=== PATIENT | male | born 1965 | race Caucasian/White ===

== ENCOUNTER 2018-05-03 19:35 | Emergency (ER) ==
[2018-05-03 19:47] VITALS: BP 157/94; TEMP 97.1; BMI 41.4
--- NOTE | 2018-05-03 19:53 | ED.PDOC ---
General ED Provider: Dr. TROY COHEN-ER Chief Complaint: Respiratory Complaint Stated Complaint: my nose is draining and im coughing up yellow stuff Time Seen by Physician: 19:51 Mode of Arrival: Walk-In Information Source: Patient Exam Limitations: No limitations Nursing and Triage Documentation Reviewed and Agree: Yes Does patient meet sepsis criteria?: No System Inflammatory Response Syndrome: Not Applicable Sepsis Protocol: For patient's 13 years and over: Temp is 96.8 and below OR 101 and greater Pulse >90 BPM Resp >20/minute Acutely Altered Mental Status Are patient's symptoms suggestive of a new infection, such as: -Pneumonia -Skin, Soft Tissue -Endocarditis -UTI -Bone, Joint Infection -Implantable Device -Acute Abdominal Infection -Wound Infection -Meningitis -Blood Stream Catheter Infection -Unknown Respiratory Complaint Exam - Respiratory Complaint/Exam Onset/Duration: several days Symptoms Are: Still present Timing: Intermittent Initial Severity: Mild Current Severity: Mild Location: Nose, Chest Character: Reports: Productive cough Aggravating: Reports: URI, Passive smoke exposure Associated Signs and Symptoms: Reports: Wheezing, URI, Nasal congestion, Sore throat. Denies: Rapid breathing, Dyspnea, Fever, Chills, Chest pain, Pleuritic chest pain, Hemoptysis, Dizziness, Calf pain, Calf swelling, Edema, Hoarseness Home Oxygen Use: No Recent Stress Test: No Recent Echo/LV Function: No Current Antibiotic Use: No Current Asthma Medication Use: No Respiratory Distress: None Inadequate Respiratory Effort: No Dysphagia Present: No JVD Present: No Accessory Muscle Use: No Diminished Breath Sounds: No Sinus Tenderness: Maxillary Grunting Respirations: No Kussmaul Respirations: No Differential Diagnoses: Bronchitis Review of Systems - Review Of Systems Constitutional: Reports: No symptoms Eyes: Reports: No symptoms Ears, Nose, Mouth, Throat: Reports: No symptoms Respiratory: Reports: Cough, Wheezing Cardiac: Reports: No symptoms GI: Reports: No symptoms : Reports: No symptoms Musculoskeletal: Reports: No symptoms Skin: Reports: No symptoms Neurological: Reports: No symptoms Endocrine: Reports: No symptoms Hematologic/Lymphatic: Reports: No symptoms All Other Systems: Reviewed and Negative Past Medical History - Past Medical History Previously Healthy: Yes Endocrine: Reports: None Cardiovascular: Reports: None Respiratory: Reports: COPD Hematological: Reports: None Gastrointestinal: Reports: None Genitourinary: Reports: None Neuro/Psych: Reports: None Musculoskeletal: Reports: None Cancer: Reports: None - Surgical History General Surgical History: Reports: Unknown - Family History Family History: Reports: Unknown - Social History Smoking Status: Current every day smoker Hx Substance Use: No Alcohol Screening: None - Immunizations Tetanus Shot up to Date: Yes Physical Exam - Physical Exam Appearance: Well-appearing, No pain distress, Well-nourished Eyes: LIZZY ENT: Rhinorrhea Neck: Supple Respiratory: Rhonchi, Wheezes Cardiovascular: RRR GI/: Soft Musculoskeletal: Normal strength, ROM intact, No edema, No calf tenderness Skin: Warm Neurological: Sensation intact, Motor intact, Reflexes intact, Cranial nerves intact, Alert, Oriented Psychiatric: Affect appropriate, Mood appropriate Critical Care Note - Critical Care Note Total Time (mins): 0 Course - Course Vital Signs: Temp Pulse Resp BP Pulse Ox 05/03/18 19:54 95 05/03/18 19:37 97.1 F L 66 20 157/94 H 93 L Departure - Departure Time of Disposition: 19:53 Disposition: HOME SELF-CARE Discharge Problem: COPD exacerbation Instructions: COPD (Chronic Obstructive Pulmonary Disease) (ED) Condition: Good Pt referred to PMD for follow-up: Yes IPMP verified?: No Additional Instructions: biaxin 500mg bid x 10 days---medrol dose pack---mucinex 600mg bid #30--- tessalon perles 200mg tid prn cough 30---albuterol inhaler 2 puffs qid ---stop smoking--you will need cxr if not better in a few days Allergies/Adverse Reactions: Allergies cephalexin [From Keflex] Adverse Reaction (Verified 05/03/18 19:43) Home Medications: Ambulatory Orders Losartan Potassium [Cozaar] 25 mg PO DAILY 05/03/18 Metoprolol Tartrate [Lopressor] 50 mg PO DAILY 05/03/18 Disposition Discussed With: Patient
== END 2018-05-03 20:03 | disposition home or self-care (01) ==
LOC: ED 19:35
DX: J44.1 Chronic obstructive pulmonary disease with (acute) exacerbation (principal); F17.210 Nicotine dependence, cigarettes, uncomplicated
CPT/HCPCS: 99283

== ENCOUNTER 2018-06-08 09:53 | Emergency (ER) ==
[2018-06-08 09:56] VITALS: BP 153/100; TEMP 96.2; BMI 40.7
--- NOTE | 2018-06-08 10:20 | ED.PDOC ---
General ED Provider: Dr. TROY MARSHALL Chief Complaint: Neck Pain Non-Injury Stated Complaint: Shoulder and neck pain. Onset 2 days ago. Coughs frequently LT chest and shoulder more uncomfortable than Rt> Lt ear aching. Also cough and congestion, aching. No fever or chills. Time Seen by Physician: 10:15 Mode of Arrival: Walk-In Information Source: Patient Exam Limitations: No limitations Primary Care Provider: RODOLFO HILLIARD Nursing and Triage Documentation Reviewed and Agree: Yes Does patient meet sepsis criteria?: No System Inflammatory Response Syndrome: Not Applicable Sepsis Protocol: For patient's 13 years and over: Temp is 96.8 and below OR 101 and greater Pulse >90 BPM Resp >20/minute Acutely Altered Mental Status Are patient's symptoms suggestive of a new infection, such as: -Pneumonia -Skin, Soft Tissue -Endocarditis -UTI -Bone, Joint Infection -Implantable Device -Acute Abdominal Infection -Wound Infection -Meningitis -Blood Stream Catheter Infection -Unknown Musculoskeletal Complaint Exam - Shoulder Pain Complaint/Exam Mechanism of Injury: Reports: No known trauma Onset/Duration: 2 days Symptoms Are: Still present Timing: Intermittent Initial Severity: Moderate Current Severity: Mild Location: Reports: Discrete Character: Reports: Sharp, Aching, Spasmodic, Stiffness, Burning Alleviating: Reports: Rest Aggravating: Reports: Movement, Flexion, Extension Associated Signs and Symptoms: Denies: Swelling, Redness, Bruising, Fever, Weakness, Numbness, Tingling Related History: Denies: Similar episode Non-Orthopedic Risk Factors: Reports: None DVT Risk Factors: Reports: None Septic Arthritis Risk Factors: Reports: None Related Surgical History: Reports: None Shoulder Findings: Present: Swelling (Tenderness LT 1st Costovertebral joint region ) Limited Range of Motion: Present: Flexion, Extension, External rotation Differential Diagnoses: Strain Quality Indicator For Non-Traumatic Chest Pain/Syncope: EKG Performed Review of Systems - Review Of Systems Constitutional: Reports: No symptoms Eyes: Reports: No symptoms Ears, Nose, Mouth, Throat: Reports: Ear pain Respiratory: Reports: Cough, Wheezing Cardiac: Reports: No symptoms GI: Reports: No symptoms : Reports: No symptoms Musculoskeletal: Reports: Back pain Skin: Reports: No symptoms Neurological: Reports: No symptoms Endocrine: Reports: No symptoms Hematologic/Lymphatic: Reports: No symptoms All Other Systems: Reviewed and Negative Past Medical History - Past Medical History Previously Healthy: Yes Endocrine: Reports: None Cardiovascular: Reports: None Respiratory: Reports: COPD Hematological: Reports: None Gastrointestinal: Reports: None Genitourinary: Reports: None Neuro/Psych: Reports: None Musculoskeletal: Reports: None Cancer: Reports: None - Surgical History General Surgical History: Reports: Unknown - Family History Family History: Reports: Unknown - Social History Smoking Status: Current every day smoker Hx Substance Use: No Alcohol Screening: None Physical Exam - Physical Exam Appearance: Well-appearing, No pain distress, Well-nourished Ill-appearing: Mild Pain Distress: Mild Eyes: LIZZY, EOMI, Conjunctiva clear ENT: Ears normal, Nose normal, Oropharynx normal Respiratory: Airway patent, Breath sounds clear, Breath sounds equal, Respirations nonlabored Cardiovascular: RRR, Pulses normal, No rub, No murmur GI/: Soft, Nontender, No masses, Bowel sounds normal, No Organomegaly Musculoskeletal: Normal strength, ROM intact, No edema, No calf tenderness Skin: Warm, Dry, Normal color Neurological: Sensation intact, Motor intact, Reflexes intact, Cranial nerves intact, Alert, Oriented Psychiatric: Affect appropriate, Mood appropriate Critical Care Note - Critical Care Note Total Time (mins): 0 Course - Course Hematology/Chemistry: 06/08/18 10:40 06/08/18 10:40 Orders, Labs, Meds: Lab Review 06/08/18 06/08/18 06/08/18 10:40 10:40 10:50 WBC 8.20 RBC 4.70 Hgb 13.7 L Hct 39.5 L MCV 84.0 MCH 29.1 MCHC 34.7 RDW Coeff of Herbert 12.7 Plt Count 213 Immature Gran % (Auto) 0.6 Neut % (Auto) 65.3 Lymph % (Auto) 25.5 Mobile % (Auto) 5.1 Eos % (Auto) 3.3 Baso % (Auto) 0.2 Immature Gran # (Auto) 0.1 Neut # (Auto) 5.4 Lymph # (Auto) 2.1 Mobile # (Auto) 0.4 Eos # (Auto) 0.3 Baso # (Auto) 0.0 ESR 18 H Puncture Site O2 Saturation ABG pH ABG pCO2 ABG pO2 ABG HCO3 ABG Total CO2 ABG Base Excess Williams Test FiO2 % Sodium 140.0 Potassium 4.78 Chloride 103.1 Carbon Dioxide 29.0 Anion Gap 12.68 BUN 17.7 Creatinine 0.79 Estimated GFR (MDRD) 102.00 BUN/Creatinine Ratio 22.40 Glucose 169.5 H Calcium 9.52 Total Bilirubin 0.27 AST 42.9 ALT 54.6 H Alkaline Phosphatase 64.0 Total Protein 7.60 Albumin 4.31 Globulin 3.29 Albumin/Globulin Ratio 1.31 Influ A Molecular Assay Negative by naat Influ B Molecular Assay Negative by naat RSV Antigen 06/08/18 06/08/18 10:50 11:05 WBC RBC Hgb Hct MCV MCH MCHC RDW Coeff of Herbert Plt Count Immature Gran % (Auto) Neut % (Auto) Lymph % (Auto) Mobile % (Auto) Eos % (Auto) Baso % (Auto) Immature Gran # (Auto) Neut # (Auto) Lymph # (Auto) Mobile # (Auto) Eos # (Auto) Baso # (Auto) ESR Puncture Site R rad O2 Saturation 93.0 L ABG pH 7.403 ABG pCO2 38.0 ABG pO2 68.0 L ABG HCO3 23.7 ABG Total CO2 25 ABG Base Excess -1 Williams Test + FiO2 % 21.0 Sodium Potassium Chloride Carbon Dioxide Anion Gap BUN Creatinine Estimated GFR (MDRD) BUN/Creatinine Ratio Glucose Calcium Total Bilirubin AST ALT Alkaline Phosphatase Total Protein Albumin Globulin Albumin/Globulin Ratio Influ A Molecular Assay Influ B Molecular Assay RSV Antigen Negative by naat Orders Category Date Time Status ABG DRAW REQUEST Stat CARDIO 06/08/18 10:27 Completed EKG-(ED ONLY) Stat CARDIO 06/08/18 10:22 Completed NEBULIZER TREATMENT Stat CARDIO 06/08/18 10:23 Completed VITAL SIGNS Q30MIN CARE 06/08/18 10:26 Active ABG Stat LAB 06/08/18 11:05 Completed CBC W/ AUTO DIFF Stat LAB 06/08/18 10:40 Completed CMP [COMPREHENSIVE METABOLIC PANEL] Stat LAB 06/08/18 10:40 Completed ESR Stat LAB 06/08/18 10:40 Completed FLU A & B MOLECULAR [FLU A/B MOLECULAR] Stat LAB 06/08/18 10:50 Completed RAPID STREP SCREEN [MOLECULAR GROUP A STREP] Stat LAB 06/08/18 10:50 Completed RSV Stat LAB 06/08/18 10:50 Completed Ipratropium/Albuterol Neb [Duoneb] MEDS 06/08/18 10:23 Discontinued 1 vial NEB ONCE STA CHEST, 2 VIEWS PA & LAT Stat RADS 06/08/18 10:26 Completed Medications Discontinued Medications Generic Name Dose Route Start Last Admin Trade Name Chandni PRN Reason Stop Dose Admin Albuterol/Ipratropium 1 vial 06/08/18 10:23 06/08/18 10:30 Duoneb NEB 06/08/18 10:24 1 vial ONCE STA Administration Vital Signs: Temp Pulse Resp BP Pulse Ox 06/08/18 09:53 96.2 F L 76 20 153/100 H 94 L Departure - Departure Time of Disposition: 11:30 Disposition: HOME SELF-CARE Discharge Problem: URI (upper respiratory infection), Serous otitis media, COPD (chronic obstructive pulmonary disease), Hyperglycemia due to type 2 diabetes mellitus, Thoracic region somatic dysfunction Instructions: How to Stop Smoking (ED), Type 2 Diabetes in Adults: New Diagnosis (ED), Ear Infection (ED), Upper Respiratory Infection (ED), COPD ( Chronic Obstructive Pulmonary Disease) (ED) Condition: Fair Pt referred to PMD for follow-up: Yes IPMP verified?: No Additional Instructions: Monitor BS readings Stay on Carbohydrate restricted diet Use meds as directed including Ibuprofen prn pain See PCP in next 2 weeks Prescriptions: Macario/Polymyx B Sulf/Dexameth [Maxitrol Opth Susp] 2 drop EACH EAR Q6HR 5 Days # 10 ml Azithromycin [Zithromax] 250 mg PO DAILY #6 tablet Azithromycin [Zithromax] 250 mg PO DAILY #6 tablet Neomycin/Polymyxin B/Dexametha [Maxitrol Eye Drops] 2 drop EACH EAR QID #10 ml Allergies/Adverse Reactions: Allergies cephalexin [From Keflex] Adverse Reaction (Verified 06/08/18 09:56) Home Medications: Ambulatory Orders Losartan Potassium [Cozaar] 25 mg PO DAILY 05/03/18 Metoprolol Tartrate [Lopressor] 50 mg PO DAILY 05/03/18 Azithromycin [Zithromax] 250 mg PO DAILY #6 tablet 06/08/18 Azithromycin [Zithromax] 250 mg PO DAILY #6 tablet 06/08/18 Macario/Polymyx B Sulf/Dexameth [Maxitrol Opth Susp] 2 drop EACH EAR Q6HR 5 Days # 10 ml 06/08/18 Neomycin/Polymyxin B/Dexametha [Maxitrol Eye Drops] 2 drop EACH EAR QID #10 ml 06/08/18 Disposition Discussed With: Patient, Family Respiratory Complaint Exam - Respiratory Complaint/Exam Onset/Duration: 2 days Symptoms Are: Worse Timing: Intermittent Initial Severity: Moderate Current Severity: Moderate Location: Throat, Chest Character: Reports: Non-productive cough, Dry cough, Bronchospastic cough Aggravating: Reports: Exertion (active smoke exposure) Alleviating: Reports: Bronchodilators (at times-does not take regularly-doesn't like side effects) Associated Signs and Symptoms: Reports: Wheezing, Nasal congestion, Sinus discomfort (Lt sided ear ache) Related Surgical History: Reports: None Pulmonary Embolism Risk Factors: None Cardiac Risk Factors: Reports: None Pseudomonas Risk Factors: Reports: None Tuberculosis Risk Factors: Reports: None Status Asthmaticus Risk Factors: Reports: None Home Oxygen Use: No Recent Stress Test: No Recent Echo/LV Function: No Current Antibiotic Use: No Current Asthma Medication Use: Yes Respiratory Distress: None Inadequate Respiratory Effort: No Dysphagia Present: No Stridor Present: No JVD Present: No Accessory Muscle Use: No Retractions: Not Present Diminished Breath Sounds: Yes Sinus Tenderness: None Grunting Respirations: No Kussmaul Respirations: No Differential Diagnoses: COPD Exacerbation
[2018-06-08] MEDS: DUONEB NEB STA (10:30)
--- NOTE | 2018-06-08 11:00 | DI ---
EXAM: CHEST FRONTAL AND LATERAL VIEWS HISTORY: Chest wheezing. COMPARISON: None FINDINGS: Heart size and mediastinal contour within normal limits. Mild atherosclerosis. No acu te infiltrates are seen. No vascular congestion. There is no consolidation, visible pleural fluid o r pneumothorax. Bones reveal no acute fracture. IMPRESSION: No acute cardiopulmonary process.
== END 2018-06-08 12:18 | disposition home or self-care (01) ==
LOC: ED 09:53
DX: J06.9 Acute upper respiratory infection, unspecified (principal); H65.90 Unspecified nonsuppurative otitis media, unspecified ear; J44.9 Chronic obstructive pulmonary disease, unspecified; E11.65 Type 2 diabetes mellitus with hyperglycemia; M99.02 Segmental and somatic dysfunction of thoracic region; F17.210 Nicotine dependence, cigarettes, uncomplicated; Z79.899 Other long term (current) drug therapy
CPT/HCPCS: 36415; 80053; 82803; 85025; 85651; 87502; 87651; 87801; 93005; 93010; 94640; 99283

== ENCOUNTER 2018-10-11 11:56 | Emergency (ER) ==
[2018-10-11 11:59] VITALS: BP 169/85; TEMP 97.6; BMI 41.5
--- NOTE | 2018-10-11 13:01 | CT ---
EXAM: CT knee, right. HISTORY: Pain after hearing pop lifting, difficult weightbearing. TECHNIQUE: CT right knee without contrast. Multiplanar images provided. FINDINGS: There is moderate tricompartment osteoarthritis. Early enthesopathy of the anterior patella at both the quadriceps tendon insertion and the origin of the infrapatellar tendon. Trace joint effusion. N o fracture is seen. No loose body is identified. The deep tissue planes and muscular tissues are pr eserved within limits of CT. No hematoma is seen. IMPRESSION: 1. Arthritic changes with no fracture or significant joint effusion. If concern is persistent, cons ider follow up with MRI.
--- NOTE | 2018-10-11 13:13 | ED.PDOC ---
General ED Provider: Dr. MENDY ROBERTS Chief Complaint: Knee Pain/Injury Stated Complaint: RIGHT KNEE PAIN. HISTOYR OF OLD INJURY, FELT POP ONE WEEK AGO , NO NEW INJURY AND DIFFICULTY WALKING DUE TO PAIN. Time Seen by Physician: 12:00 (NO ASSOCIATED COMPLAINTS OFFERED DUE TO THE FALL) Mode of Arrival: Walk-In Information Source: Patient Exam Limitations: No limitations Primary Care Provider: RODOLFO HILLIARD Nursing and Triage Documentation Reviewed and Agree: Yes Does patient meet sepsis criteria?: No System Inflammatory Response Syndrome: Not Applicable Sepsis Protocol: For patient's 13 years and over: Temp is 96.8 and below OR 101 and greater Pulse >90 BPM Resp >20/minute Acutely Altered Mental Status Are patient's symptoms suggestive of a new infection, such as: -Pneumonia -Skin, Soft Tissue -Endocarditis -UTI -Bone, Joint Infection -Implantable Device -Acute Abdominal Infection -Wound Infection -Meningitis -Blood Stream Catheter Infection -Unknown Musculoskeletal Complaint Exam - Knee Pain Complaint/Exam Mechanism of Injury: Reports: Trauma Onset/Duration: 1 WEEK PRIOR; NO NEW INJURY AND PERSISTENT PAIN Symptoms Are: Still present Onset of Pain: Reports: Immediate Initial Severity: Moderate Current Severity: Moderate Location: Reports: Discrete Character: Reports: Dull Alleviating: Reports: Rest, Position Aggravating: Reports: Movement, Weight bearing, Prolonged standing Associated Signs and Symptoms: Denies: Swelling, Redness, Bruising, Fever, Weakness, Numbness, Tingling Able to Bear Weight: Yes Septic Arthritis Risk Factors: Reports: None Gout Risk Factors: Reports: None Knee Findings: Absent: Swelling, Ecchymosis, Abnormal contour, Rotation, Ligamentous instability, Laceration, Erythema, Warmth, Blisters Tenderness: Present: Pre-patellar Tanner Test Positive: No Bakari Test Positive: No Limited Range of Motion: Present: Active, Passive, Flexion, Extension Differential Diagnoses: Closed Fracture, Internal Derangement, Sprain, Strain Review of Systems - Review Of Systems Constitutional: Reports: No symptoms Eyes: Reports: No symptoms Ears, Nose, Mouth, Throat: Reports: No symptoms Respiratory: Reports: No symptoms Cardiac: Reports: No symptoms GI: Reports: No symptoms : Reports: No symptoms Musculoskeletal: Reports: Joint pain (KNEE RIGHT ONLY) Skin: Reports: No symptoms Neurological: Reports: No symptoms Endocrine: Reports: No symptoms Hematologic/Lymphatic: Reports: No symptoms All Other Systems: Reviewed and Negative Past Medical History - Past Medical History Previously Healthy: Yes Endocrine: Reports: None Cardiovascular: Reports: None Respiratory: Reports: COPD Hematological: Reports: None Gastrointestinal: Reports: None Genitourinary: Reports: None Neuro/Psych: Reports: None Musculoskeletal: Reports: None Cancer: Reports: None - Surgical History General Surgical History: Reports: Unknown - Family History Family History: Reports: Unknown - Social History Smoking Status: Current every day smoker Hx Substance Use: No Alcohol Screening: None - Immunizations Tetanus Shot up to Date: No Physical Exam - Physical Exam Appearance: Well-appearing, No pain distress, Well-nourished Eyes: LIZZY, EOMI, Conjunctiva clear ENT: Ears normal, Nose normal, Oropharynx normal Respiratory: Airway patent, Breath sounds clear, Breath sounds equal, Respirations nonlabored Cardiovascular: RRR, Pulses normal, No rub, No murmur GI/: Soft, Nontender, No masses, Bowel sounds normal, No Organomegaly Musculoskeletal: Limited ROM (ON PASSIVE MOVEMENT ) Skin: Warm, Dry, Normal color Neurological: Sensation intact, Motor intact, Reflexes intact, Cranial nerves intact, Alert, Oriented Psychiatric: Affect appropriate, Mood appropriate Interpretation - Radiology Interpretation Radiology Interpretation By: Radiologist Radiology Results: No acute changes Exam Interpreted: CT Scan Critical Care Note - Critical Care Note Total Time (mins): 0 Course - Course Orders, Labs, Meds: Orders Category Date Time Status CT KNEE RIGHT WITHOUT CONTRAST Stat RADS 10/11/18 12:21 Completed Vital Signs: Temp Pulse Resp BP Pulse Ox 10/11/18 11:57 97.6 F 64 18 169/85 H 95 Departure - Departure Time of Disposition: 13:15 Disposition: HOME SELF-CARE Discharge Problem: Knee pain, Injury of knee Right knee sprain Qualifiers: Encounter type: initial encounter Involved ligament of knee: unspecified ligament Qualified Code(s): S83.91XA - Sprain of unspecified site of right knee , initial encounter Instructions: Knee Sprain (ED) Condition: Good Pt referred to PMD for follow-up: Yes IPMP verified?: No Additional Instructions: Please call your Family Physician as soon as possible to schedule a follow-up appointment. PLEASE REFRAIN FROM PUTTING ANY WEIGHT ON THE KNEE AND WALK WITH CRUTCHES. OUR RADIOLOGISTS RECOMMENDS AN MRI OF THE KNEE. CT IS NOT REMARKABLE FOR ANY MAJOR FINDINGS OTHER THAN ARTHRITIS. SERIOUS INTERNAL JOINT SOFT TISSUE WILL BE MISSED WITH CT. IT IS BEST TO GET AN MRI TO APPRECIATE THAT TYPE OF INJURY. CONTACT [facility]. Prescriptions: Hydrocodone Bit/Acetaminophen [[place] 10-325] 1 each PO Q6HR #10 tablet Allergies/Adverse Reactions: Allergies cephalexin [From Keflex] Adverse Reaction (Verified 10/11/18 11:59) Home Medications: Ambulatory Orders Losartan Potassium [Cozaar] 25 mg PO DAILY 05/03/18 Metoprolol Tartrate [Lopressor] 50 mg PO DAILY 05/03/18 Hydrocodone Bit/Acetaminophen [[place] 10-325] 1 each PO Q6HR #10 tablet 10/11/18 Disposition Discussed With: Patient
== END 2018-10-11 13:40 | disposition home or self-care (01) ==
LOC: ED 11:56
DX: S83.91XA Sprain of unspecified site of right knee, initial encounter (principal); X50.1XXA Overexertion from prolonged static or awkward postures, initial encounter; F17.210 Nicotine dependence, cigarettes, uncomplicated
CPT/HCPCS: 99282